=== PATIENT | male | born 1980 | race Caucasian/White ===

== ENCOUNTER 2021-12-30 22:44 | Observation (INO) | payer OTHER, SELFPAY ==
--- NOTE | ~2021-12-30 | US_ITS ---
EXAMINATION: US renal BI DATE: 12/31/2021 09:51 INDICATION: Acute kidney injury TECHNIQUE: Multiple grayscale and Doppler ultrasound images of the kidneys were obtained. COMPARISON: None. FINDINGS: The right kidney is enlarged, contains innumerable cysts, and measures approximately 19.1 x 10.1 x 10.3 cm. The left kidney is enlarged, contains innumerable cysts, and measures approximately 20 x 10.8 x 15.8 cm. The kidneys demonstrate normal parenchymal echogenicity. There is no hydronephro sis. The bladder is normal. IMPRESSION: 1. Polycystic kidneys. Reviewed, dictated and finalized at location B. IMPRESSION: 1. Polycystic kidneys.
--- NOTE | ~2021-12-30 | XR_ITS ---
EXAMINATION: XR chest 2V DATE: 12/30/2021 23:12 INDICATION: Mid chest pain radiating down both arms TECHNIQUE: PA and lateral views of the chest were obtained. COMPARISON: None FINDINGS: The lungs are clear with no focal airspace opacities, pulmonary edema, pleural effusion or pneumothor ax. The cardiomediastinal silhouette is normal. Visualized bones and soft tissues are unremarkable. IMPRESSION: 1. Normal chest radiograph. Reviewed, dictated and finalized at location A. IMPRESSION: 1. Normal chest radiograph.
--- NOTE | 2021-12-30 22:49 | ECG_ITS ---
Measurements Intervals [place] Rate: 88 P: 30 ND: 133 QRS: 27 QRSD: 106 T: 9 QT: 342 QTc: 415 Interpretive Statements SINUS RHYTHM BORDERLINE ST-T WAVE ABNORMALITY- ANTEROLAT/INF LEADS BASELINE ARTIFACT- I, III, AVL BORDERLINE ECG NO PREVIOUS ECG AVAILABLE FOR COMPARISON Electronically Signed On 12-31-2021 6:36:48 CDT by Vitaly Funk D.O.
[2021-12-30 22:51] VITALS: BP 219/143; PULSE 100; RESP 16; TEMP 36.9; O2SAT 97
[2021-12-30 23:07] LABS: Basophils Absolute Auto 0.1 K/mm3 (0.0-0.1); Basophils Percent Auto 0.7 % (0.2-1.2); Eosinophils Absolute Auto 0.2 K/mm3 (0-0.3); Eosinophils Percent Auto 1.9 % (0-4.4); Hematocrit 44.9 % (42.0-52.0); Hemoglobin 15.7 g/dL (14.0-18.0); Immature Granulocyte Absolute 0.03 K/mm3 (0.00-0.031); Immature Granulocyte Percent A 0.3 % (0-0.5); Lymphocytes Absolute Auto 2.19 K/mm3 (0.9-3.2); Lymphocytes Percent Auto 20.9 % (18.3-44.2); Mean Corpuscular Hemoglobin 28.8 pg (26-34); Mean Corpuscular Volume 82.2 fl (80-100); Mean Platelet Volume 9.4 fl (7.4-10.4); Monocytes Absolute Auto 0.5 K/mm3 (0.1-0.6); Monocytes Percent Auto 5.1 % (2.6-8.5); Neutrophils Absolute Auto 7.5 K/mm3 (1.3-6.7); Neutrophils Percent Auto 71.1 % (45.5-73.1); Platelet Count Result 245 k/mm3 (150-375); Red Blood Count 5.46 M/mm3 (4.6-6.20); Red Cell Distribution Width 13.2 % (11.5-14.5); White Blood Count 10.5 K/mm3 (4.5-10.0)
[2021-12-30 23:18] VITALS: BP 202/140; PULSE 99; RESP 17; O2SAT 96
[2021-12-30 23:20] LABS: Partial Thromboplastin Time 32.6 SECONDS (22.3-36.8); Prothrombin Time 13.1 Seconds (11.1-14.7)
[2021-12-30 23:23] LABS: Alanine Aminotransferase 20 U/L (6-50); Albumin Level 4.4 g/dL (3.5-5.1); Alkaline Phosphatase 75 U/L (38-126); Anion Gap 12 mmol/L (8-16); Aspartate Amino Transferase 31 U/L (17-59); Bilirubin,Total 0.7 mg/dL (0.2-1.3); Blood Urea Nitrogen 29 mg/dL (9-20); Calcium 8.7 mg/dL (8.4-10.2); Carbon Dioxide 27 mmol/L (22-30); Chloride 106 mmol/L (98-107); Estimated CRCL calculation 56 ml/min; Estimated Glomerular Filt Rate 39; Glucose 108 mg/dL (65-110); Lipase 185 U/L (23-300); Potassium 3.8 mmol/L (3.4-5.0); Sodium 145 mmol/L (137-145)
[2021-12-30] MEDS: NITROGLYCERIN SL 0.4 MG TABLET SUBLINGUAL (23:24)
--- NOTE | 2021-12-30 23:25 | PC.NURSE ---
Gave 1 nitro per verbal orders from Dr Royal even though pt CP a [address] Royal reports Give it any way for his BP.
[2021-12-30 23:30] VITALS: BP 176/124; PULSE 112; RESP 17; O2SAT 95
--- NOTE | 2021-12-30 23:40 | ED.GENADULT ---
HPI - General Adult General Chief complaint: Chest Pain Stated complaint: CP, HTN Time Seen by Provider: 12/30/21 23:09 History of Present Illness HPI narrative: Is a 41-year-old gentleman who presents emerged department with chief complaint of chest pain. The patient reports that he has history of hypertension but has been not taking any blood pressure medicine for some time the patient states that over the last several days little bit of a tightness feeling in his chest and this evening it got worse and he got diaphoretic. The patient states that when they checked his blood pressure was in the 200s and reports that the heaviness was there until he arrived in the emergency department. Patient reports he has never had a stress test reports that he is a non-smoker. There is no family history for early cardiac disease. The patient states that symptoms have gradually improved and currently he is chest pain-free. Related Data Allergies Allergy/AdvReac Type Severity Reaction Status Date / Time shellfish derived Allergy Swelling Verified 12/30/21 22:50 of Lip/Tongue/Throat Review of Systems Review of Systems: A 10 system review of systems was completed on the patient and is negative except for what is stated in the HPI. Nursing and ancillary documentation was reviewed. PMFSH Comments Last medical history significant for hypertension Social history the patient reports to no smoking Exam Narrative: GENERAL: Well-appearing, well-nourished, and in no acute distress. HEAD: Normocephalic, atraumatic. EYES: PERRLA and EOMI. ENT: Nares clear, no rhinorrhea or epistaxis. Mucous membranes moist. NECK: Supple. CHEST: Clear to auscultation. No respiratory distress. HEART: Regular rate and rhythm. No murmur heard. Normal peripheral pulses. ABDOMEN: Soft, nontender, nondistended, normal active bowel sounds. EXTREMITIES: Normal range of motion. No edema. SKIN: Warm, dry, no rash. NEURO: No focal deficits. Alert and oriented x3. PSYCH: Normal mood and affect. Course Course Emergency Course: EKG is sinus rhythm rate of [address] elevations Vital Signs Vital signs: Vital Signs Temperature 36.9 C 12/30/21 22:51 Pulse Rate 100 12/30/21 22:51 Respiratory Rate 16 12/30/21 22:51 Blood Pressure 219/143 H 12/30/21 22:51 Pulse Oximetry 97 12/30/21 22:51 Oxygen Delivery Room Air 12/30/21 22:51 Temperature 36.9 C 12/30/21 22:51 Pulse Rate 92 12/30/21 23:57 Respiratory Rate 16 12/30/21 22:51 Blood Pressure 219/143 H 12/30/21 22:51 Pulse Oximetry 97 12/30/21 22:51 Oxygen Delivery Room Air 12/30/21 22:51 Medical Decision Making Vital Signs Vital Signs: Vital Signs Temperature 36.9 C 12/30/21 22:51 Pulse Rate 100 12/30/21 22:51 Respiratory Rate 16 12/30/21 22:51 Blood Pressure 219/143 H 12/30/21 22:51 Pulse Oximetry 97 12/30/21 22:51 Oxygen Delivery Room Air 12/30/21 22:51 Temperature 36.9 C 12/30/21 22:51 Pulse Rate 92 12/30/21 23:57 Respiratory Rate 16 12/30/21 22:51 Blood Pressure 219/143 H 12/30/21 22:51 Pulse Oximetry 97 12/30/21 22:51 Oxygen Delivery Room Air 12/30/21 22:51 Lab Data Result diagrams: 12/30/21 23:02 12/30/21 23:02 Labs: Lab Results 12/30/21 12/30/21 12/30/21 Range/Units 23:02 23:02 23:02 WBC 10.5 H (4.5-10.0) K/mm3 RBC 5.46 (4.6-6.20) M/mm3 Hgb 15.7 (14.0-18.0) g/dL Hct 44.9 (42.0-52.0) % MCV 82.2 (80-100) fl MCH 28.8 (26-34) pg MCHC 35.0 (32-36) g/dl RDW 13.2 (11.5-14.5) % Plt Count 245 (150-375) k/mm3 MPV 9.4 (7.4-10.4) fl Immature Gran % (Auto) 0.3 (0-0.5) % Neut % (Auto) 71.1 (45.5-73.1) % Lymph % (Auto) 20.9 (18.3-44.2) % [place] % (Auto) 5.1 (2.6-8.5) % Eos % (Auto) 1.9 (0-4.4) % Baso % (Auto) 0.7 (0.2-1.2) % Lymph # (Auto) 2.19 (0.9-3.2) K/mm3 [place] # (Auto) 0.5 (0.1-0.6)
[2021-12-30 23:45] VITALS: BP 176/120; PULSE 96; RESP 15; O2SAT 97
[2021-12-30 23:49] LABS: Troponin I 0.106 ng/mL (0.000-0.034)
[2021-12-30 23:57] VITALS: PULSE 92
[2021-12-30] MEDS: METOPROLOL TARTRATE INJ 5 MG/5 ML VIAL IV PUSH (23:57)
[2021-12-31] VITALS (22 sets, daily range): BP systolic 154–191; BP diastolic 95–135; PULSE 80–108; RESP 15–21; TEMP 36.1–36.8; O2SAT 95–99; BMI 36.8
--- NOTE | 2021-12-31 | ECHO_ITS ---
Transthoracic Echo Report Patient Info Name: Kalin Patel [age] : 1980 Gender: Male Ht: 66.00 in Wt: 250.00 lbs BSA: 2.35 m? BP: 191..00 mmHg HR: 84.00 bpm Heart Rhythm: Sinus Rhythm Exam Date: 12/31/2021 8:17 AM Admit Date: 12/31/2021 Exam Location: [facility] Patient Status: Inpatient Exam Type: CA echo dop color flow w con Reserve Officer: Sascha Dixon, CLEMENT, RT Ordering Physician: Diana Nur M.A., MD Attending Provider: Diana Nur M.A., MD Study Info Procedure(s) Strain analysis performed. Complete two-dimensional, color flow and Doppler transthoracic echocardiogram is performed with contrast to opacify the left ventricle and to improve the deliniation of the left ventricle endocardial borders. Summary 1. Left ventricular systolic function is normal, estimated at 50-55%. 2. No regional wall motion abnormality. 3. There is moderately increased left ventricular wall thickness. 4. The left ventricular diastolic function is grade I diastolic dysfunction. 5. No significant valvular disease. Left Ventricle No regional wall motion abnormality. Left ventricular systolic function is normal, estimated at 50-55%. There is moderately increased left ventricular wall thickness. The left ventricular diastolic function is grade I diastolic dysfunction. There is no thrombus visualized in the left ventricle. Right Ventricle Right ventricular chamber dimension is normal. Right ventricular systolic function is normal. Left Atria Left atrial chamber dimension is normal. Right Atria Right atrial chamber dimension is normal. Atrial Septum Intact interatrial septum visualized by color flow imaging. Aortic Valve The aortic valve is not well visualized. There is no aortic valve stenosis. There is no aortic valve regurgitation. Mitral Valve The mitral valve has normal leaflets. There is no mitral valve stenosis. There is no mitral valve regurgitation. Tricuspid Valve The tricuspid valve leaflets are not well visualized. There is no significant tricuspid valve stenosis. There is no tricuspid valve regurgitation. Pulmonic Valve The pulmonic valve is not well visualized. Aorta The aortic root size at the sinus of Valsalva is normal. The prox ascending aorta size is mildly dilated. Inferior Vena Cava Normal inferior vena cava with >50% collapse upon inspiration consistent with Empty right atrial pressure, Empty. Pericardium/Pleural The pericardium appears epicardial fat pad. There is no pericardial effusion. Ventricles Name Value Normal Name Value Normal LV Dimensions 2D/MM IVS DiastolicThickness (2D) 1.28 cm 0.60-1.00 LVOT Diameter 2.20 cm LVID Diastole (2D) 4.07 cm 4.20-5.80 LV Mass (2D Cubed) 192.43 g 88.00-224.00 LVIW Diastolic Thickness (2D) 1.33 cm 0.60-1.00 LV Mass Index (2D Cubed) 0.01 g/cm2 0.00-0.01 LVID Systole (2D) 2.92 cm 2.50-4.00 Relative Wall Thickness (2D) 0.66 LV Fractional Shortening/Ejection Fraction 2D/MM LV Fractional Shortening (2D) 28.06 % 25.00-43.00 LV Diastolic Volume Index (BP MOD) 0.06 l/m? 0.03-0.07 LV EF (2D Teicholz) 54.80 % 52.00-72.00 LV Systolic Volume (BP MOD) 71.79 ml 21.00-61.00 LV Diastolic Volume (4C MOD) 151.10 ml LV Systolic Volume Index (BP MOD) 0.03 l/m? 0.01-0.03 LV EF (4C MOD) 49.47 % LV EF (BP MOD) 48.54 % 52.00-72.00 LV Diastolic Volume (2C MOD) 127.18 ml LV Diastolic Length (4C) 8.43 cm LV EF (2C MOD) 48.10 % LV Systolic Length (4C) 7.61 cm LV Diastolic Volume (BP MOD) 139.51 ml 62.00-150.00 LV Stroke Volume (4C MOD) 74.75 ml Atria Name Value Normal Name Value Normal LA Dimensions LA Volume (4C A-L) 39.13 ml LA Volume (BP A-L) 37.16 ml RA Dimensions RA Area (4C) 11.88 cm? .18.00 Left Ventricular Outflow
--- NOTE | 2021-12-31 00:08 | PM.IMHP ---
H&P: HPI History of Present Illness Date/Time: 12/31/21 00:08 Chief Complaint: 41 years old male with past medical history of elevated blood pressure not on medication presented to the hospital with chest tightness started today heaviness like improved with nitro and lowering blood pressure chest pain now resolved after improvement of blood pressure denies shortness of breath patient measured his blood pressure at home and it was in 200s systolic in the ER blood pressure was 219 systolic patient was given metoprolol and night to with improvement of blood pressure patient also has elevated creatinine patient denies past medical history of renal disease personal or family history of heart disease patient will be admitted to the hospital for further evaluation and treatment of hypertension associated with acute renal failure Review of Systems Review of Systems: 12 system review was done was negative except above Meds Home Medications and Allergies Allergies Allergy/AdvReac Type Severity Reaction Status Date / Time shellfish derived Allergy Swelling Verified 12/30/21 22:50 of Lip/Tongue/Throat Vital Signs Vital Signs - 24 hr 12/30/21 22:51 12/30/21 22:51 12/30/21 23:57 Temperature 98.4 F Pulse Rate 100 100 92 Respiratory Rate 16 Blood Pressure 219/143 H Pulse Oximetry 97 Oxygen Delivery Room Air Exam Narrative: GENERAL: Well appearing, well-nourished, non-toxic, in no acute distress. HEAD: Normocephalic, atraumatic. NECK: Supple. No adenopathy, no masses. RESPIRATORY: Airway patent, respirations nonlabored. Clear to auscultation bilaterally, no rales, rhonchi, wheezing. CARDIOVASCULAR: Regular rate and rhythm without murmurs, rubs, or gallops. Peripheral pulses 2+ and equal bilaterally. ABDOMINAL: Soft, nontender, nondistended, no hepatosplenomegaly. Normoactive BS. MUSCULOSKELETAL: Moves all extremities. Strength/ROM intact without gross deformities or TTP. No edema. No calf tenderness. No chest wall tenderness palpation. SKIN: Warm, dry, normal color. No rashes. NEURO: A&O X3. Speech clear. Cranial nerves II-XII grossly intact. Steady gait. No ataxic movements. PSYCHIATRIC: Appropriate mood and affect. Normal interaction. H&P: Results Labs Labs: Short CBC 12/30/21 Range/Units 23:02 WBC 10.5 H (4.5-10.0) K/mm3 Hgb 15.7 (14.0-18.0) g/dL Hct 44.9 (42.0-52.0) % Plt Count 245 (150-375) k/mm3 BMP 12/30/21 23:02 Sodium 145 Potassium 3.8 Chloride 106 Carbon Dioxide 27 BUN 29 H Creatinine 1.90 H Glucose 108 Calcium 8.7 Cardiac Enzymes 12/30/21 Range/Units 23:02 Troponin I 0.106 H* (0.000-0.034) ng/mL Liver Function 12/30/21 Range/Units 23:02 Total Bilirubin 0.7 (0.2-1.3) mg/dL AST 31 (17-59) U/L ALT 20 (6-50) U/L Alkaline Phosphatase 75 (38-126) U/L Albumin 4.4 (3.5-5.1) g/dL Assessment and Plan Assessment and plan (1) Chest pain: Code(s): R07.9 - Chest pain, unspecified Status: Acute Assessment and Plan: most likely related to hypertensive urgency resolved associated with elevated troponin no significant EKG finding will hold off therapeutic anticoagulation for now unless worsening troponin associated with worsening chest pain cardiology consult aspirin statin beta-carrol amlodipine as tolerated by blood pressure (2) Elevated troponin: Code(s): R77.8 - Other specified abnormalities of plasma proteins Status: Acute Assessment and Plan: most likely related to NSTEMI type 2 secondary to demand ischemia secondary to hypertensive urgency monitor cardiology consult on echo (3) Hypertension: Code(s): I10 - Essential (primary) hypertension Status: Acute Assessment and Plan: started Coreg amlodipine p.r.n. hydralazine (4) Acute renal insufficiency: Code(s): N28.9 - Disorder of kidney and ureter, unspecified Status: Acute As
[2021-12-31] MEDS: amLODIPine BESYLATE 5 MG TABLET PO (00:28)
[2021-12-31 01:08] LABS: Basophils Absolute Auto 0.1 K/mm3 (0.0-0.1); Basophils Percent Auto 0.7 % (0.2-1.2); Eosinophils Absolute Auto 0.2 K/mm3 (0-0.3); Eosinophils Percent Auto 1.7 % (0-4.4); Hematocrit 43.3 % (42.0-52.0); Hemoglobin 15.1 g/dL (14.0-18.0); Immature Granulocyte Absolute 0.05 K/mm3 (0.00-0.031); Immature Granulocyte Percent A 0.4 % (0-0.5); Lymphocytes Absolute Auto 1.81 K/mm3 (0.9-3.2); Lymphocytes Percent Auto 15.1 % (18.3-44.2); Mean Corpuscular HGB Conc 34.9 g/dl (32-36); Mean Corpuscular Hemoglobin 28.8 pg (26-34); Mean Corpuscular Volume 82.5 fl (80-100); Mean Platelet Volume 9.7 fl (7.4-10.4); Monocytes Absolute Auto 0.6 K/mm3 (0.1-0.6); Monocytes Percent Auto 5.2 % (2.6-8.5); Neutrophils Absolute Auto 9.2 K/mm3 (1.3-6.7); Neutrophils Percent Auto 76.9 % (45.5-73.1); Platelet Count Result 259 k/mm3 (150-375); Red Blood Count 5.25 M/mm3 (4.6-6.20); Red Cell Distribution Width 13.2 % (11.5-14.5)
[2021-12-31 01:43] LABS: Creatine Kinase 63 U/L (55-170)
[2021-12-31 01:44] LABS: Magnesium 2.1 mg/dL (1.6-2.3)
[2021-12-31 01:45] LABS: Alanine Aminotransferase 20 U/L (6-50); Albumin Level 4.1 g/dL (3.5-5.1); Alkaline Phosphatase 77 U/L (38-126); Anion Gap 10 mmol/L (8-16); Aspartate Amino Transferase 28 U/L (17-59); Bilirubin,Total 0.6 mg/dL (0.2-1.3); Blood Urea Nitrogen 31 mg/dL (9-20); Calcium 8.9 mg/dL (8.4-10.2); Carbon Dioxide 24 mmol/L (22-30); Chloride 107 mmol/L (98-107); Estimated CRCL calculation 56 ml/min; Estimated Glomerular Filt Rate 39; Glucose 141 mg/dL (65-110); Potassium 3.7 mmol/L (3.4-5.0); Sodium 141 mmol/L (137-145)
[2021-12-31 01:58] LABS: Cholesterol 227 mg/dL (0-200); HDL Direct 30 mg/dL; Triglycerides 326 mg/dL (<150); Uric Acid 9.6 mg/dL (3.5-8.5)
[2021-12-31 02:01] LABS: LDL Cholesterol Direct 163 mg/dL
[2021-12-31 02:03] LABS: Troponin I 0.221 ng/mL (0.000-0.034)
[2021-12-31] MEDS: SODIUM CHLORIDE 0.9% IV 1,000 ML 75 ML IV CONT ×2 (02:10→17:56)
[2021-12-31 02:49] LABS: Creatinine Urine 95.2 mg/dL
--- NOTE | 2021-12-31 03:02 | ECG_ITS ---
Measurements Intervals [place] Rate: 84 P: 38 NE: 137 QRS: 28 QRSD: 86 T: -3 QT: 355 QTc: 420 Interpretive Statements SINUS RHYTHM NONSPECIFIC ST & T-WAVE ABNORMALITY- INFERIOR LEADS BORDERLINE ECG COMPARED TO ECG 12/30/2021 22:49:25 NO SIGNIFICANT CHANGES Electronically Signed On 12-31-2021 8:56:09 CDT by Vitaly Funk D.O.
[2021-12-31] MEDS: hydrALAZINE HCL 20 MG/ML VIAL 10 MG IV PUSH ×3 (03:04→20:40)
[2021-12-31 03:14] LABS: Barbiturate Screen Urine Negative (Negative); Benzodiazepines Screen Urine Negative (Negative)
[2021-12-31 03:23] LABS: SARS-CoV-2 RNA PCR Negative
[2021-12-31 03:51] LABS: Sodium Urine Random 115 meq/L
[2021-12-31 03:51] LABS: Amphetamine Screen Urine Negative (Negative); Cannabinoid Screen Urine Negative (Negative); Cocaine Screen Urine Negative (Negative); Methadone Screen Urine Negative (Negative); Opiate Screen Urine Negative (Negative); Phencyclidine Screen Urine Negative (Negative); Potassium Urine Random 20.7 meq/L
--- NOTE | 2021-12-31 03:52 | PC.NURSE ---
This patient, Kalin Patel, was admitted to IMU Room 205-01. Patient/family oriented to hospital policies and general routines including ID bracelet, bed and alarms, visiting hours, pain management, procedures, bathroom and other care routines, personal items, smoking policy, room service/diet, and visiting hours. Information on how to activate the Rapid Response Team has been discussed. Patient/Family are encouraged to report perceived risks to care and to ask questions if they do not understand what they are told or what they should do.
[2021-12-31 04:08] LABS: Total Protein Urine Random 20 mg/dL
[2021-12-31 05:30] LABS: Troponin I 0.373 ng/mL (0.000-0.034)
--- NOTE | 2021-12-31 06:02 | ECG_ITS ---
Measurements Intervals [place] Rate: 91 P: 28 SD: 143 QRS: 16 QRSD: 79 T: 5 QT: 360 QTc: 444 Interpretive Statements SINUS RHYTHM MINIMAL Q WAVES- INFERIOR LEADS BORDERLINE ST-T WAVE ABNORMALITY- INFERIOR LEADS BORDERLINE ECG COMPARED TO ECG 12/31/2021 03:25:14 NO SIGNIFICANT CHANGES Electronically Signed On 12-31-2021 8:58:05 CDT by Vitaly Funk D.O.
[2021-12-31] MEDS: HEPARIN SODIUM 5,000 UNITS/ML VIAL 5000 UNITS SUB-Q ×3 (06:47→22:15)
[2021-12-31] MEDS: PERFLUTREN LIPID MICROSPHERES 1.5 ML VIAL DILUTED TO 10 ML TOTAL VOLUME IV PUSH (08:24)
--- NOTE | 2021-12-31 08:25 | IVDEFINITY ---
Prior to administration of IV Definity the patient was educated on the risks and benefits of the imaging enhancing agent including potential adverse side effects. The patient verbalized understanding. Allergies were verified. No exclusion criteria were identified and at least one of the following inclusion criteria were met: 1) physician request, 2) patient technically difficult to image (per the [place] [employer]ocardi[employer] guidelines of two or more segments not discernable within the apical view), or 3) questionable left ventricular function. ?
[2021-12-31] MEDS: amLODIPine BESYLATE 2.5 MG TABLET PO (08:32)
[2021-12-31] MEDS: carvediloL 6.25 MG TABLET PO ×2 (08:32→20:41)
[2021-12-31] MEDS: ASPIRIN 81 MG CHEWABLE TABLET PO (08:33)
[2021-12-31] MEDS: ACETAMINOPHEN 325 MG TABLET 650 MG PO (11:30)
--- NOTE | 2021-12-31 12:31 | PM.IMPN ---
Progress Note: A&P Assessment and Plan (1) Chest pain: Code(s): R07.9 - Chest pain, unspecified Status: Acute (2) Polycystic kidney disease: Code(s): Q61.3 - Polycystic kidney, unspecified Status: Acute (3) Elevated troponin: Code(s): R77.8 - Other specified abnormalities of plasma proteins Status: Acute (4) Hypertension: Code(s): I10 - Essential (primary) hypertension Status: Acute (5) Renal failure: Code(s): N19 - Unspecified kidney failure Status: Acute (6) Hyperlipidemia: Code(s): E78.5 - Hyperlipidemia, unspecified Status: Acute (7) Hyperglycemia: Code(s): R73.9 - Hyperglycemia, unspecified Status: Acute Plan 12/31/21 Patient was admitted to the IMU. Blood pressure was extremely elevated on admission and is improved after starting Coreg and Norvasc. Troponin up to 0.37. EKG showing mild ST and T wave changes but no LVH. Renal function is unchanged so this may be chronic. Renal ultrasound does show polycystic kidney disease. This may be the etiology of his hypertension. Will have Nephrology consult. Will changes hydralazine parameters to allow for elevated blood pressure in the short term. Troponin trending up slightly and this has been repeated. Cholesterol panel noted. Add lipitor. Echo ordered. Ischemia workup planned. Check A1c. Start sliding scale protocol. Subjective Date/time seen: 12/31/21 12:31 Interval history: 41yo male with HTN here for chest pain. Patient was having chest pain with exertion when walking upstairs. Chest pain worsened at rest which prompted patient to present to the ED. He denies pleuritic chest pain. He was short of breath with the chest pain. No calf pain or pedal edema. Family history of polycystic kidney disease. He has never been tested for polycystic kidney disease. He did have his hip replaced a few years ago but he states he was never told that he had abnormal renal function at that time. Patient does not take any prescription medications. He did take Tylenol and ibuprofen to help with the chest pain but does not take NSAIDs on regular basis. Normal urine output. No hematuria, cloudy urine or foamy urine. No dysuria. No back pain. Exam Narrative: AF 97.0 177/123 89 18 96% ra Gen - NARD Chest - CTA bilaterally, nml RR CV - RRR S1/S2. Tele showing no significant dysrhythmias Abd - Soft, NT/ND, Positive BS Ext - No pedal edema Psych - Nml mood and affect Skin - Warm and dry Objective Data Vital Signs Vital Signs: Vital Signs - 24 hr 12/30/21 22:51 12/30/21 22:51 12/30/21 23:57 Temperature 98.4 F Pulse Rate 100 100 92 Respiratory Rate 16 Blood Pressure 219/143 H Pulse Oximetry 97 Oxygen Delivery Room Air 12/31/21 00:00 12/31/21 00:15 12/30/21 23:45 Temperature Pulse Rate 84 80 96 Respiratory Rate 15 15 15 Blood Pressure 166/113 H 164/97 H 176/120 H Pulse Oximetry 96 96 97 Oxygen Delivery 12/30/21 23:30 12/30/21 23:18 12/31/21 01:35 Temperature Pulse Rate 112 H 99 81 Respiratory Rate 17 17 20 Blood Pressure 176/124 H 202/140 H 182/123 H Pulse Oximetry 95 96 97 Oxygen Delivery 12/31/21 02:00 12/31/21 03:39 12/31/21 03:45 Temperature Pulse Rate 80 94 94 Respiratory Rate 21 H 20 20 Blood Pressure 161/95 H 165/115 H 165/115 H Pulse Oximetry 96 96 96 Oxygen Delivery 12/31/21 04:00 12/31/21 04:00 12/31/21 04:00 Temperature 98 F Pulse Rate 106 H 92 Respiratory Rate 20 Blood Pressure 191/118 H Pulse Oximetry 96 Oxygen Delivery Room Air 12/31/21 06:00 12/31/21 07:40 12/31/21 08:32 Temperature 97.0 F L Pulse Rate 91 94 84 Respiratory Rate 18 Blood Pressure 154/120 H Pulse Oximetry 95 Oxygen Delivery 12/31/21 08:00 12/31/21 08:00 12/31/21 10:00 Temperature Pulse Rate 92 90 Respiratory Rate Blood Pressure Pulse Oximetry Oxygen Delivery Room Air
[2021-12-31 12:37] LABS: Troponin I 0.259 ng/mL (0.000-0.034)
--- NOTE | 2021-12-31 14:24 | PC.NURSE ---
On 12/31/21, the student, [Carli Fisher], provided care and completed [facility] documentation on this patient. I have reviewed the student's documentation and agree with the findings.
--- NOTE | 2021-12-31 14:36 | PM.CNCAR ---
Assessment and Plan Assessment and plan (1) Acute renal insufficiency: Code(s): N28.9 - Disorder of kidney and ureter, unspecified Status: Acute (2) Hypertension: Code(s): I10 - Essential (primary) hypertension Status: Acute (3) Elevated troponin: Code(s): R77.8 - Other specified abnormalities of plasma proteins Status: Acute (4) Chest pain: Code(s): R07.9 - Chest pain, unspecified Status: Acute (5) Polycystic kidney disease: Code(s): Q61.3 - Polycystic kidney, unspecified Status: Acute Plan 1. Continue with ASA and statin. 2. Blood pressure control. 3. Echocardiogram pending - will follow up on the results. 4. Given patient's description of chest pain, elevated troponins, and family history of premature CAD, would recommend ischemic evaluation. Will await echo results first. Considering stress test vs cardiac cath depending on renal function. Patient to be NPO at midnight. History of Present Illness History of Present Illness Consult date/time: 12/31/21 14:36 Requesting physician: Diana Nur M.A., MD Consult reason: chest pain Reason For Visit: Chest Pain,Elevated Troponin,Renal Insufficiency Narrative: Patient is a 41-year-old male with a history of hypertension who presented with chest pain. Patient reports last night he developed exertional chest pain that lasted for about 10 minutes or so. Chest pain radiated to arm. Had a repeat episode around 4AM this morning that lasted for a few minutes. No prior history of chest pain. Diagnosed with hypertension several years ago. Has not been taking his antihypertensives for the past 2 years. Mother has a history of polycystic kidney disease. Was diagnosed with HTN in her 30s. She had coronary stents placed in her 40s. Patient denies ETOH and tobacco use. On arrival to the ED, he was noted to be hypertensive with SBP in the 200s. Troponins are mildly elevated. ECGs without ischemic changes. Patient is currently chest pain free. No other associated symptoms. Review of Systems Review of Systems: All systems reviewed & are unremarkable except as noted in HPI and below (HPI) [facility] Family History Family History Mother Acute myocardial infarction Hypertension Grandparent Cerebrovascular accident Social History Social History Smoking status: Never smoker Alcohol intake: never Substance use: never Spiritual care concerns: No Meds Home Medications and Allergies Home Medications Medication Instructions Recorded Confirmed Type No Home Medications 12/31/21 12/31/21 History Allergies Allergy/AdvReac Type Severity Reaction Status Date / Time shellfish derived Allergy Swelling Verified 12/31/21 04:00 of Lip/Tongue/Throat Vital Signs Vital Signs - 24 hr 12/30/21 22:51 12/30/21 22:51 12/30/21 23:57 Temperature 36.9 C Pulse Rate 100 100 92 Respiratory Rate 16 Blood Pressure 219/143 H Pulse Oximetry 97 Oxygen Delivery Room Air 12/31/21 00:00 12/31/21 00:15 12/30/21 23:45 Temperature Pulse Rate 84 80 96 Respiratory Rate 15 15 15 Blood Pressure 166/113 H 164/97 H 176/120 H Pulse Oximetry 96 96 97 Oxygen Delivery 12/30/21 23:30 12/30/21 23:18 12/31/21 01:35 Temperature Pulse Rate 112 H 99 81 Respiratory Rate 17 17 20 Blood Pressure 176/124 H 202/140 H 182/123 H Pulse Oximetry 95 96 97 Oxygen Delivery 12/31/21 02:00 12/31/21 03:39 12/31/21 03:45 Temperature Pulse Rate 80 94 94 Respiratory Rate 21 H 20 20 Blood Pressure 161/95 H 165/115 H 165/115 H Pulse Oximetry 96 96 96 Oxygen Delivery 12/31/21 04:00 12/31/21 04:00 12/31/21 04:00 Temperature 36.6 C Pulse Rate 106 H 92 Respiratory Rate 20 Blood Pressure 191/118 H Pulse Oximetry 96 Oxygen Delivery Room Air 12/31/21 06:00 12/31/21 07:40
--- NOTE | 2021-12-31 15:12 | PM.CNNEP ---
Assessment and Plan Assessment and plan (1) Polycystic kidney disease: Code(s): Q61.3 - Polycystic kidney, unspecified Status: Chronic Assessment and Plan: as noted by family history and renal ultrasound findings presumably etiology of renal dysfunction (2) Renal failure: Code(s): N19 - Unspecified kidney failure Status: Acute Assessment and Plan: acute versus acute on chronic versus chronic progression?? last labs I could find are from August 2019: creatinine was 1.29mg/dl at that time still suspect current creatinine from PCKD versus hypertension or both check urine electrolytes and assess for proteinuria trial of IVFs seems reasonably follow repeat labs and UOP (3) Chest pain: Code(s): R07.9 - Chest pain, unspecified Status: Acute Assessment and Plan: troponins noted Cardiology recommendations reviewed follow up on Echo possible cardiac catheterization versus stress testing (4) Hypertension: Code(s): I10 - Essential (primary) hypertension Status: Acute Assessment and Plan: quite elevated on presentation unclear how long BP has been running this way would avoid overcontrol for now to ensure adequate renal hypoperfusion follow trend of hemodynamics Will continue to follow. History of Present Illness Reason for Consult Consult date: 01/01/22 Reason for consult: Other (polycystic kidney disease) Chief Complaint Chief complaint: Chest Pain,Elevated Troponin,Renal Insufficiency History of Present Illness Narrative: The patient is a 41-year-old male with a past medical history as outlined below who presented to [facility] Emergency room with complaints of chest pain. The chest pain apparently started the night before admission and was associated with exertional activity. The chest pain lasts for about 10 minutes or so before resolved on its own. The chest pain did radiate to his arm and was associated with some mild diaphoresis. He had a repeat episode of chest pain around 4:00 a.m. on the day of admission that also last for a few minutes as well. Given the symptoms as well as the fact that he has a family history of premature coronary artery disease, he came to the emergency room for further evaluation. Workup and evaluation emergency room demonstrated the patient to be quite hypertensive with a systolic BP greater in the 200s. Initial laboratory findings demonstrated a mildly elevated troponin and EKG without any significant ischemic findings. His chemistry showed an elevated BUN and creatinine as well and although he has a family history of polycystic kidney disease, he reports he has never been told that he had any issues with his kidneys the last time he had blood work. By the time of his arrival to the emergency room, his chest pain had resolved and he had no other acute complaints. However, given his constellation of symptoms and history, he was admitted the hospital for further evaluation and therapy with Cardiology consultation. Since his admission, he has been seen by Cardiology with a tentative plan for an echocardiogram and possible stress testing versus cardiac catheterization depending on the results of his echocardiogram. He has already had a renal ultrasound done which confirms his diagnosis of polycystic kidney disease. His blood pressure appears to be doing somewhat better with institution of medical therapy although since his unclear how long he has been hypertensive, the goal has been slow control of his blood pressure for fear of promoting worsening renal insufficiency. Renal consultation was requested due to his elevated BUN and creatinine in association with his known history of polycystic kidney disease. The patient's mother has polycystic kidney disease in association with issues/problems with hypertension that began in her 30s with subsequent coronary artery stent placing in her 40s. Per t
[2021-12-31 17:01] LABS: Glucose Point of Care 89 mg/dl (65-105)
[2021-12-31 20:11] LABS: Glucose Point of Care 159 mg/dl (65-105)
[2022-01-01] VITALS (14 sets, daily range): BP systolic 156–177; BP diastolic 108–116; PULSE 94–117; RESP 14–20; TEMP 36–36.7; O2SAT 97–98
[2022-01-01] MEDS: hydrALAZINE HCL 20 MG/ML VIAL 10 MG IV PUSH ×2 (02:30→10:37)
[2022-01-01 05:30] LABS: Basophils Absolute Auto 0.1 K/mm3 (0.0-0.1); Basophils Percent Auto 0.6 % (0.2-1.2); Eosinophils Absolute Auto 0.2 K/mm3 (0-0.3); Eosinophils Percent Auto 1.4 % (0-4.4); Hematocrit 48.7 % (42.0-52.0); Hemoglobin 16.6 g/dL (14.0-18.0); Immature Granulocyte Absolute 0.04 K/mm3 (0.00-0.031); Immature Granulocyte Percent A 0.4 % (0-0.5); Lymphocytes Absolute Auto 1.41 K/mm3 (0.9-3.2); Lymphocytes Percent Auto 12.8 % (18.3-44.2); Mean Corpuscular HGB Conc 34.1 g/dl (32-36); Mean Corpuscular Hemoglobin 28.6 pg (26-34); Mean Corpuscular Volume 83.8 fl (80-100); Mean Platelet Volume 9.7 fl (7.4-10.4); Monocytes Absolute Auto 0.6 K/mm3 (0.1-0.6); Monocytes Percent Auto 5.7 % (2.6-8.5); Neutrophils Absolute Auto 8.7 K/mm3 (1.3-6.7); Neutrophils Percent Auto 79.1 % (45.5-73.1); Platelet Count Result 258 k/mm3 (150-375); Red Blood Count 5.81 M/mm3 (4.6-6.20); Red Cell Distribution Width 13.8 % (11.5-14.5)
[2022-01-01 05:41] LABS: Hemoglobin A1C 5.2 % (<5.7)
[2022-01-01 05:44] LABS: Alanine Aminotransferase 19 U/L (6-50); Albumin Level 4.3 g/dL (3.5-5.1); Alkaline Phosphatase 66 U/L (38-126); Anion Gap 10 mmol/L (8-16); Aspartate Amino Transferase 26 U/L (17-59); Bilirubin,Total 1.3 mg/dL (0.2-1.3); Blood Urea Nitrogen 23 mg/dL (9-20); Carbon Dioxide 21 mmol/L (22-30); Chloride 110 mmol/L (98-107); Estimated CRCL calculation 66 ml/min; Estimated Glomerular Filt Rate 52; Glucose 107 mg/dL (65-110); Magnesium 1.8 mg/dL (1.6-2.3); Phosphorus 2.4 mg/dL (2.5-4.5); Potassium 3.8 mmol/L (3.4-5.0); Sodium 141 mmol/L (137-145)
[2022-01-01] MEDS: HEPARIN SODIUM 5,000 UNITS/ML VIAL 5000 UNITS SUB-Q ×2 (05:46→13:31)
[2022-01-01] MEDS: SODIUM CHLORIDE 0.9% IV 1,000 ML 75 ML IV CONT (05:47)
[2022-01-01 07:27] LABS: Glucose Point of Care 123 mg/dl (65-105)
[2022-01-01] MEDS: ATORVASTATIN 40 MG TABLET PO (08:40)
[2022-01-01] MEDS: amLODIPine BESYLATE 2.5 MG TABLET PO (08:40)
[2022-01-01] MEDS: carvediloL 6.25 MG TABLET PO (08:41)
[2022-01-01] MEDS: ASPIRIN 81 MG CHEWABLE TABLET PO (08:42)
[2022-01-01 11:56] LABS: Glucose Point of Care 111 mg/dl (65-105)
--- NOTE | 2022-01-01 12:12 | PM.PNCARD ---
Progress Note: A&P Assessment and Plan (1) Chest pain: Code(s): R07.9 - Chest pain, unspecified Status: Acute Plan 41-year-old man with: Hypertension, polycystic kidney disease with renal insufficiency. Chest pain which appears to be atypical of ischemia. Acute coronary syndrome has been ruled out by ECGs troponins and echocardiogram. Echo does not show any recent ischemic wall motion abnormalities. He is asymptomatic since admission. I believe he can be discharged and should undergo ischemic testing with a Lexiscan nuclear stress test as an outpatient. He will have difficulty walking on the treadmill because of significant arthritis. Following his stress test he will follow up with Dr. Ramirez in the office. Carlos Ames MD [facility] Subjective Date/time seen: Date of service: 01/01/22 12:12 Interval history: Follow-up visit in this 41-year-old man with: Episode of atypical sounding chest pain. No history of coronary artery disease. No evidence of acute coronary syndrome with ECG and troponin levels. Patient has mild flat elevation of troponin which is attributable to his renal disease. Appears to have polycystic kidney disease, new diagnosis and hypertension as well. Exam Const: General: comfortable and no acute distress HENMT: Mouth: Yes moist mucous membranes Eyes: Sclera: sclerae normal Neck: Neck: supple and no JVD Other: Normal carotid pulses Resp: Effort & Inspection: normal respiratory effort Auscultation: clear to auscultation bilaterally Cardio: Rate: regular rate Rhythm: regular rhythm Other: S4 is audible no murmur GI: GI Palp: Yes Soft to palpation Auscultation: normal bowel sounds Skin: General skin exam: normal color Neuro: Other: Alert and oriented x3 Extrem: Other: Good pulses, no edema Objective Data Vital Signs Vital Signs: Vital Signs - 24 hr 12/31/21 14:00 12/31/21 16:00 12/31/21 16:00 Temperature 36.7 C Pulse Rate 94 94 93 Respiratory Rate 18 Blood Pressure 167/108 H Pulse Oximetry 97 Oxygen Delivery 12/31/21 16:00 12/31/21 18:00 12/31/21 20:00 Temperature 36.8 C Pulse Rate 103 H 102 H Respiratory Rate 18 Blood Pressure 161/114 H Pulse Oximetry 99 Oxygen Delivery Room Air 12/31/21 20:41 01/01/22 00:00 12/31/21 20:00 Temperature 36.6 C Pulse Rate 100 96 93 Respiratory Rate 14 Blood Pressure 157/113 H Pulse Oximetry 98 Oxygen Delivery 12/31/21 22:00 01/01/22 00:00 01/01/22 00:00 Temperature Pulse Rate 108 H 94 Respiratory Rate Blood Pressure Pulse Oximetry Oxygen Delivery Room Air 01/01/22 02:00 01/01/22 04:00 01/01/22 04:00 Temperature Pulse Rate 102 H 98 Respiratory Rate Blood Pressure Pulse Oximetry Oxygen Delivery Room Air 01/01/22 04:00 01/01/22 06:00 01/01/22 07:50 Temperature 36.6 C 36.0 C L Pulse Rate 106 H 95 100 Respiratory Rate 14 20 Blood Pressure 169/111 H 177/115 H Pulse Oximetry 97 98 Oxygen Delivery 01/01/22 08:41 01/01/22 10:13 01/01/22 08:00 Temperature Pulse Rate 99 Respiratory Rate Blood Pressure 156/116 H Pulse Oximetry Oxygen Delivery Room Air 01/01/22 08:00 01/01/22 10:00 01/01/22 12:11 Temperature 36.4 C Pulse Rate 102 H 95 102 H Respiratory Rate 20 Blood Pressure 163/108 H Pulse Oximetry 97 Oxygen Delivery Intake/Output Intake/Output: Intake & Output 12/29/21 12/30/21 12/31/21 01/01/22 23:59 23:59 23:59 23:59 Intake Total 2070 1000 Output Total 1850 1250 Balance 220 -250 Meds/Results Medications: Active Medications Generic Name Dose Route Start Last Admin Trade Name Lokeshq PRN Reason Stop Dose Admin Acetaminophen 650 mg 12/31/21 00:02 12/31/21 11:30 Acetaminophen 325 Mg Tablet PO 650 mg Q4H PRN Administration Mild Pain (1-3) Al Hydrox/Mg Hydrox/Simethicone 30 ml 12/31/21 00:02 Mag Hydrox/Al Hydrox/Simeth 30
[2022-01-01 13:05] LABS: Total Protein Urine Random 13 mg/dL; Ur Ttl Prot Creatinine Ratio 0.17 mg/mg (0-0.20)
[2022-01-01 13:06] LABS: Sodium Urine Random 125 meq/L
--- NOTE | 2022-01-01 13:23 | PM.PNNEP ---
Progress Note: A&P Assessment and Plan (1) Polycystic kidney disease: Code(s): Q61.3 - Polycystic kidney, unspecified Status: Chronic Assessment and Plan: as noted by family history and renal ultrasound findings presumably etiology of renal dysfunction (2) Renal failure: Code(s): N19 - Unspecified kidney failure Status: Acute Assessment and Plan: acute versus acute on chronic versus chronic progression?? last labs I could find are from August 2019: creatinine was 1.29mg/dl at that time still suspect current creatinine from PCKD versus hypertension or both urine electrolytes are non-prerenal only 170mg of proteinuria follow repeat labs and UOP (3) Chest pain: Code(s): R07.9 - Chest pain, unspecified Status: Acute Assessment and Plan: troponins noted Cardiology recommendations noted (4) Hypertension: Code(s): I10 - Essential (primary) hypertension Status: Acute Assessment and Plan: quite elevated on presentation unclear how long BP has been running this way would avoid overcontrol for now to ensure adequate renal hypoperfusion consider titration of carvedilol versus switching to metoprolol Not opposed to discharge from renal perspective if otherwise medically stable. Will continue to follow. Subjective Date/time seen: 01/01/22 13:23 Appears to be doing reasonably well at the time of my visit; Cardiology recommendations noted (stress test as an outpatient); BP still appears a bit erratic but better in general; no apparent issues/events overnight or earlier this morning. Exam Narrative: General: WD/WN male in NAD Heart: normal S1 and S2; no rub Lungs: clear to auscultation Abdomen: soft, nontender, nondistended, positive bowel sounds Extremities: no cyanosis or clubbing; no edema Skin: warm and dry Objective Data Vital Signs Vital Signs: Vital Signs Temp Pulse Resp BP Pulse Ox O2 Del Method 01/01/22 12:00 102 H 01/01/22 12:00 Room Air 01/01/22 12:11 36.4 C 102 H 20 163/108 H 97 01/01/22 10:00 95 01/01/22 08:00 102 H 01/01/22 08:00 Room Air 01/01/22 10:13 156/116 H 01/01/22 08:41 99 01/01/22 07:50 36.0 C L 100 20 177/115 H 98 01/01/22 06:00 95 09/16/22 04:00 36.6 C 106 H 14 169/111 H 97 01/01/22 04:00 Room Air 01/01/22 04:00 98 01/01/22 02:00 102 H 01/01/22 00:00 Room Air 01/01/22 00:00 94 12/31/21 22:00 108 H 12/31/21 20:00 93 01/01/22 00:00 36.6 C 96 14 157/113 H 98 12/31/21 20:41 100 12/31/21 20:00 36.8 C 102 H 18 161/114 H 99 12/31/21 18:00 103 H Intake/Output Intake/Output: Intake & Output 12/29/21 12/30/21 12/31/21 01/01/22 23:59 23:59 23:59 23:59 Intake Total 2070 1240 Output Total 1850 1250 Balance 220 -10 Meds/Results Medications: Active Medications Generic Name Dose Route Start Last Admin Trade Name Lokeshq PRN Reason Stop Dose Admin Acetaminophen 650 mg 12/31/21 00:02 12/31/21 11:30 Acetaminophen 325 Mg Tablet PO 650 mg Q4H PRN Administration Mild Pain (1-3) Al Hydrox/Mg Hydrox/Simethicone 30 ml 12/31/21 00:02 Mag Hydrox/Al Hydrox/Simeth 30 Ml Udc PO Q6H PRN Indigestion Amlodipine Besylate 2.5 mg 12/31/21 09:00 01/01/22 08:40 Amlodipine Besylate 2.5 Mg Tablet PO 2.5 mg QAM EVER Administration Aspirin 81 mg 12/31/21 08:00 01/01/22 08:42 Aspirin 81 Mg Chewable Tablet PO 81 mg DAILY@0800 EVER Administration Atorvastatin Calcium 40 mg 01/01/22 09:00 01/01/22 08:40 Atorvastatin 40 Mg Tablet PO 40 mg DAILY EVER Administration Carvedilol 6.25 mg 12/31/21 09:00 01/01/22 08:41 Carvedilol 6.25 Mg Tablet PO 6.25 mg Q12HR EVER Administration Dextrose 12.5 gm 12/31/21 12:59 Dextrose 50% 25 Gm/50 Ml Syringe IV PUSH PRN PRN Hypoglyc
--- NOTE | 2022-01-01 13:23 | P.PNNP_ITS ---
Progress Note: A&P Assessment and Plan (1) Polycystic kidney disease: Code(s): Q61.3 - Polycystic kidney, unspecified Status: Chronic Assessment and Plan: * as noted by family history and renal ultrasound findings * presumably etiology of renal dysfunction (2) Renal failure: Code(s): N19 - Unspecified kidney failure Status: Acute Assessment and Plan: * acute versus acute on chronic versus chronic progression?? * last labs I could find are from August 2019: * creatinine was 1.29mg/dl at that time * still suspect current creatinine from PCKD versus hypertension or both * urine electrolytes are non-prerenal * only 170mg of proteinuria * follow repeat labs and UOP (3) Chest pain: Code(s): R07.9 - Chest pain, unspecified Status: Acute Assessment and Plan: * troponins noted * Cardiology recommendations noted (4) Hypertension: Code(s): I10 - Essential (primary) hypertension Status: Acute Assessment and Plan: * quite elevated on presentation * unclear how long BP has been running this way * would avoid overcontrol for now to ensure adequate renal hypoperfusion * consider titration of carvedilol versus switching to metoprolol Not opposed to discharge from renal perspective if otherwise medically stable. Will continue to follow. Subjective Date/time seen: 01/01/22 13:23 Appears to be doing reasonably well at the time of my visit; Cardiology recommendations noted (stress test as an outpatient); BP still appears a bit erratic but better in general; no apparent issues/events overnight or earlier this morning. Exam Narrative: General: WD/WN male in NAD Heart: normal S1 and S2; no rub Lungs: clear to auscultation Abdomen: soft, nontender, nondistended, positive bowel sounds Extremities: no cyanosis or clubbing; no edema Skin: warm and dry Objective Data Vital Signs Vital Signs: Vital Signs Temp Pulse Resp BP Pulse Ox O2 Del Method 01/01/22 12:00 102 H 01/01/22 12:00 Room Air 01/01/22 12:11 36.4 C 102 H 20 163/108 H 97 01/01/22 10:00 95 01/01/22 08:00 102 H 01/01/22 08:00 Room Air 01/01/22 10:13 156/116 H 01/01/22 08:41 99 01/01/22 07:50 36.0 C L 100 20 177/115 H 98 01/01/22 06:00 95 01/01/22 04:00 36.6 C 106 H 14 169/111 H 97 01/01/22 04:00 Room Air 01/01/22 04:00 98 01/01/22 02:00 102 H 01/01/22 00:00 Room Air 01/01/22 00:00 94 12/31/21 22:00 108 H 12/31/21 20:00 93 01/01/22 00:00 36.6 C 96 14 157/113 H 98 12/31/21 20:41 100 12/31/21 20:00 36.8 C 102 H 18 161/114 H 99 12/31/21 18:00 103 H Intake/Output Intake/Output: Intake & Output 12/29/21 12/30/21 12/31/21 01/01/22 23:59 23:59 23:59 23:59 Intake Total 2070 1240 Output Total 1850 1250 Balance 220 -10 Meds/Results Medications: Active Medications Generic Name Dose Route Start Last Admin Trade Name Ashley PRN Reason Stop Dose Admin Acetaminophen 650 mg 12/31/21 00:02 09
[2022-01-01 16:15] LABS: Glucose Point of Care 134 mg/dl (65-105)
--- NOTE | 2022-01-01 17:01 | PM.DS ---
DS: Admitting Diagnosis Discharge Date 01/01/22 Admitting Diagnosis Chest pain DS: Discharge Diagnosis Discharge Diagnosis (1) Chest pain: Code(s): R07.9 - Chest pain, unspecified Status: Acute (2) Polycystic kidney disease: Code(s): Q61.3 - Polycystic kidney, unspecified Status: Chronic (3) Elevated troponin: Code(s): R77.8 - Other specified abnormalities of plasma proteins Status: Acute (4) Hypertension: Code(s): I10 - Essential (primary) hypertension Status: Acute (5) Renal failure: Code(s): N19 - Unspecified kidney failure Status: Acute (6) Hyperlipidemia: Code(s): E78.5 - Hyperlipidemia, unspecified Status: Acute (7) Hyperglycemia: Code(s): R73.9 - Hyperglycemia, unspecified Status: Acute DS: Summary Hospital Course Reason for hospitalization: 41yo male with HTN here for chest pain. Please see H&P for details Hospital Course: Patient was admitted to the IMU. Blood pressure was extremely elevated on admission and improved after starting Coreg and Norvasc. Troponin climbed to 0.37. EKG showing mild ST and T wave changes but no LVH. Cr was 1.9 and improved to 1.5 with IV fluids. Renal ultrasound does show polycystic kidney disease. Nephrology and Cardiology consulted. TG 326, Chol 227, LDL 163 and HDL 30; Lipitor started. Echo did not show any wall motion abnormalities but final report pending. A1c 5.2. Elevated Trop felt related to the elevated blood presure and from his underlying renal disease. Plan for outpatient stress test. He overall did well and was discharged home on 01/01/22 Status at Discharge Cognitive/behavioral status at discharge: stable Time Spent with Patient Time attestation: Total time spent providing and/or coordinating discharge services: 32 minutes Time spent: Greater than 30 minutes Exam Narrative: AF 98.1 164/112 106 20 97% ra Gen - NARD Chest - CTA bilaterally, nml RR CV - RRR S1/S2. Tele showing rare missed beat but no significant dysrhythmias Abd - Soft, NT/ND, Positive BS Ext - No pedal edema Psych - Nml mood and affect Skin - Warm and dry DS: Data Data Completed and Pending Labs on day of discharge: Labs from last 24 hours 01/01/22 01/01/22 01/01/22 16:12 11:49 09:51 WBC RBC Hgb Hct MCV MCH MCHC RDW Plt Count MPV Immature Gran % (Auto) Neut % (Auto) Lymph % (Auto) [place] % (Auto) Eos % (Auto) Baso % (Auto) Lymph # (Auto) [place] # (Auto) Eos # (Auto) Baso # (Auto) Abs Immat Gran (auto) Absolute Neuts (auto) Absolute Nucleated RBC Nucleated RBC % Sodium Potassium Chloride Carbon Dioxide Anion Gap BUN Creatinine Estim Creat Clear Calc Estimated GFR Glucose POC Capillary Glucose 134 H 111 H Hemoglobin A1c Calcium Phosphorus Magnesium Total Bilirubin AST ALT Alkaline Phosphatase Total Protein Albumin Ur Random Creatinine Pending U Random Total Protein Ur Random Sodium Ur Random Chloride Pending U Random Chloride/Creat Pending Urine Total Volume Urine Creatinine Protein/Creat Ratio 2 01/01/22 01/01/22 01/01/22 09:51 07:23 04:33 WBC RBC Hgb Hct MCV MCH MCHC RDW Plt Count MPV Immature Gran % (Auto) Neut % (Auto) Lymph % (Auto) [place] % (Auto) Eos % (Auto) Baso % (Auto) Lymph # (Auto) [place] # (Auto) Eos # (Auto) Baso # (Auto) Abs Immat Gran (auto) Absolute Neuts (auto) Absolute Nucleated RBC Nucleated RBC % Sodium Potassium Chloride Carbon Dioxide Anion Gap BUN Creatinine Estim Creat Clear Calc Estimated GFR Glucose POC Capillary Glucose 123 H Hemoglobin A1c Calcium Phosphorus Cancelled Magnesium Cancelled Total Bilirubin AST ALT
[2022-01-04 15:38] LABS: Osmolality, Urine 461 mOsm/kg (50-1200)
[2022-01-06 15:04] LABS: Chloride Rand Ur 121 mmol/L (32-290); Chloride/Creatinine Rand Ur 159 (23-275); Creatinine Random Urine 76 mg/dL (20-320)
== END 2022-01-01 17:49 | disposition home or self-care (01) ==
LOC: ANHED 23:59 → ANHIMU 12-31 03:46
PROVIDERS: Internal Medicine; Internal Medicine Nephrology; Admitting Provider Internal Medicine; Emergency Provider Emergency Medicine; Visit Provider Internal Medicine
DX: R07.9 Chest pain, unspecified (principal); Q61.3 Polycystic kidney, unspecified; R77.8 Other specified abnormalities of plasma proteins; I11.0 Hypertensive heart disease with heart failure; I50.30 Unspecified diastolic (congestive) heart failure; N17.9 Acute kidney failure, unspecified; E78.5 Hyperlipidemia, unspecified; I11.9 Hypertensive heart disease without heart failure; R73.9 Hyperglycemia, unspecified; Z20.822 Contact with and (suspected) exposure to COVID-19; Z82.49 Family history of ischemic heart disease and other diseases of the circulatory system
CPT/HCPCS: 36415; 71046; 76775; 80053; 80061; 80307; 81050; 82436; 82550; 82570; 82948; 83036; 83690; 83735; 83935; 84100; 84133; 84156; 84300; 84443; 84484; 84550; 85025; 85610; 85730; 93005; 93306; 96361; 96374; 96375; 96376; 99285; A9270; C8929; C9803; G0378; J0360; J1644; J7030; Q9957; U0003; U0005